=== PATIENT | male | born 1950 | race Caucasian/White ===

== ENCOUNTER 2017-08-11 09:54 | Emergency (ER) | payer BC, OTHER, MEDICARE ==
[2017-08-11] MEDS ORDERED: Acetaminophen 500 MG TAB ONE (10:11)
--- NOTE | 2017-08-11 21:52 | RAD ---
CHEST: 08/11/17 PA and lateral views show a normal sized heart and clear lungs. No acute infiltrate or effusion was seen. The haziness over the lower lungs is probably mainly due to the overlying soft tissues. The me diastinum was unremarkable. The trachea is midline. IMPRESSION: No definite acute finding. POS: HOME
== END 2017-08-11 11:10 | disposition home or self-care (01) ==
LOC: BURERS 09:54
DX: J10.1 Influenza due to other identified influenza virus with other respiratory manifestations (principal); I10 Essential (primary) hypertension; Z79.899 Other long term (current) drug therapy
CPT/HCPCS: 71020; 87081; 87430